=== PATIENT | male | born 1990 | race African-American/Black ===

== ENCOUNTER 2021-09-15 20:00 | Emergency (ER) | payer OTHER ==
[~2021-09-15] VITALS: Ht 193 cm; Wt 76.7 kg
[2021-09-15 20:39] VITALS: BP 140/73
--- NOTE | 2021-09-15 20:43 | NUR ---
PATIENT TO LOBBY
--- NOTE | 2021-09-15 21:31 | NUR ---
CALLED PATIENT NO ANSWER
--- NOTE | 2021-09-15 22:04 | NUR ---
called patient no answer
--- NOTE | 2021-09-15 22:05 | NUR ---
PATIENT LEFT WITHOUT BEING SEEN BY DR. MCCLOUD. NO FURTHER CARE PROVIDED FOR PATIENT.
== END 2021-09-15 22:05 | disposition left against medical advice (07) ==
LOC: MED 20:00
DX: R07.89 Other chest pain (principal); Z53.21 Procedure and treatment not carried out due to patient leaving prior to being seen by health care provider